=== PATIENT | male | born 1975 | race Caucasian/White ===

== ENCOUNTER 2017-10-28 16:10 | Emergency (ER) | payer OTHER, SELFPAY ==
[2017-10-28 17:06] LABS: #Eosinphils 0.1 thou/uL (0.0-0.7); #Lymphocytes 0.9 thou/uL (1.20-3.40); #Monocytes 0.6 thou/uL (0.11-0.59); #Neutrophils 6.5 thou/uL (1.40-6.50); %Monocytes 7.9 % (0.0-10.0); Hematocrit 49.7 % (42.0-52.0); Mean Platelet Volume 7.1 fL (7.4-10.4); Red Blood Cell (RBC) Count 5.27 mill/uL (4.70-6.10); White Blood Cell (WBC) Count 8.1 thou/uL (4.8-10.8)
[2017-10-28] MEDS ORDERED: Morphine 4 MG/ML VIAL ONE (17:13)
[2017-10-28 17:29] LABS: ALT (SGPT) 26 U/L (8-55); AST (SGOT) 22 U/L (5-34); Alkaline Phosphatase 108 U/L (40-150); Anion Gap 13 mmol/L (10-20); BUN (Urea Nitrogen) 8 mg/dL (8.9-20.6); Bilirubin, Total 0.4 mg/dL (0.2-1.2); Calc. Creatinine Clearance 0 mL/min (70-130); Calcium 9.3 mg/dL (7.8-10.44); Carbon Dioxide 28 mmol/L (22-29); Chloride 101 mmol/L (98-107); Estimated GFR-MDRD 73; Globulin 3.1 g/dL (2.4-3.5); Lipase 18 U/L (8-78); Protein, Total 7.3 g/dL (6.0-8.3)
[2017-10-28] MEDS ORDERED: ISOVUE-370 76%-LOCM 1 ML ONE (17:48)
--- NOTE | 2017-10-28 18:27 | CT ---
CT ABDOMEN WITH CONTRAST CT PELVIS WITH CONTRAST: DATE: 10-28-17 HISTORY: 42-year-old male with right lower quadrant abdominal pain. COMPARISON: None. TECHNIQUE: IV injection of iodinated contrast media: 100 ml of Isovue 379 Oral contrast media: Not administered FINDINGS: The appendix, abdominal aorta, bilateral kidneys, adrenals, pancreas, liver and spleen, are normal. N o sign of acute colonic diverticulitis. No small bowel dilation. No pneumoperitoneum or ascites. Ther e is a tiny left pleural effusion or pleural thickening. There are extensive linear, platelike densit ies throughout the left mid and lower lung zones, similar to previous one view chest radiograph of , representing scar, associated with architectural distortion. Urinary bladder is decompressed a nd difficult to evaluate. IMPRESSION: 1. Normal appendix. 2. No acute intraabdominal or intrapelvic findings identified. 3. Tiny left pleural effusion versus left pleural thickening. 4. 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 JOSELIN Yadav POS: [facility]
== END 2017-10-28 21:22 | disposition home or self-care (01) ==
LOC: ERS 16:10
DX: R10.31 Right lower quadrant pain (principal); B34.9 Viral infection, unspecified; F17.210 Nicotine dependence, cigarettes, uncomplicated; Z79.899 Other long term (current) drug therapy
CPT/HCPCS: 74177; 80053; 83690; 85025; 96361; 96374; 99406; J2270

== ENCOUNTER 2017-10-29 21:36 | Emergency (ER) | payer OTHER, SELFPAY ==
[2017-10-29 22:37] LABS: #Basophils 0.1 thou/uL (0.0-0.2); #Lymphocytes 1.2 thou/uL (1.20-3.40); #Monocytes 0.7 thou/uL (0.11-0.59); #Neutrophils 4.5 thou/uL (1.40-6.50); %Eosinophils 0.5 % (0.0-10.0); %Lymphocytes 17.8 % (21.0-51.0); Mean Platelet Volume 7.4 fL (7.4-10.4); Red Blood Cell (RBC) Count 5.47 mill/uL (4.70-6.10); White Blood Cell (WBC) Count 6.6 thou/uL (4.8-10.8)
[2017-10-29 22:54] LABS: Bilirubin Negative (Negative); Blood, Urine Trace (Negative); Glucose, Urine (Dipstick) Negative (Negative); Ketone, Urine Negative (Negative); Nitrite Negative (Negative); Protein, Urine (Dipstick) Negative (Neg-Trace); Urobilinogen 0.2 mg/dL (0.2-1.0)
[2017-10-29 23:00] LABS: ALT (SGPT) 28 U/L (8-55); AST (SGOT) 33 U/L (5-34); Alkaline Phosphatase 87 U/L (40-150); Anion Gap 16 mmol/L (10-20); BUN (Urea Nitrogen) 9 mg/dL (8.9-20.6); Bilirubin, Total 0.2 mg/dL (0.2-1.2); Calc. Creatinine Clearance 0 mL/min (70-130); Calcium 8.4 mg/dL (7.8-10.44); Carbon Dioxide 21 mmol/L (22-29); Chloride 105 mmol/L (98-107); Estimated GFR-MDRD 80; Globulin 3.2 g/dL (2.4-3.5); Lipase 41 U/L (8-78); Protein, Total 6.8 g/dL (6.0-8.3)
[2017-10-29 23:13] LABS: Bacteria/HPF None Seen HPF (None Seen); Hyaline Casts/LPF 0-3 HYALINE CAST LPF (0-3 Hyaline); RBC/HPF 0-3 HPF (0-3); Squamous Epithelial 0-3 HPF (0-3); WBC/HPF 0-3 HPF (0-3)
--- NOTE | 2017-10-29 23:57 | CT ---
CT OF THE ABDOMEN AND PELVIS WITHOUT CONTRAST: Date: 10-29-17 Provided Clinical History: Right lower quadrant pain. FINDINGS: Comparison is made with a CT examination performed 10-28-17. There is pleural parenchymal scarring at the left lung base again seen. The visualized lung bases appear otherwise clear. The solid abdominal organs are suboptimally evaluated without IV contrast and demonstrate unremarkabl e unenhanced CT appearance. There is no evidence for urinary tract calculi or hydronephrosis. There is no bowel dilatation, inflammatory fat stranding, free fluid or free air apparent. Appendix a ppears normal. The osseous structures demonstrate no concerning osteoblastic or osteolytic lesions. IMPRESSION: No evidence for an acute process. POS: [facility]
[2017-10-30] MEDS ORDERED: Ketorolac Tromethamine 30 MG/ML VIAL ONE (00:10)
== END 2017-10-30 00:17 | disposition home or self-care (01) ==
LOC: SCSER 21:36
DX: R10.31 Right lower quadrant pain (principal); F17.210 Nicotine dependence, cigarettes, uncomplicated; I49.9 Cardiac arrhythmia, unspecified
CPT/HCPCS: 74176; 80053; 81003; 81015; 83690; 85025; 96361; 96374; 99406; J1885

== ENCOUNTER 2018-04-01 22:56 | Emergency (ER) | payer OTHER ==
[2018-04-01 23:20] LABS: #Basophils 0.1 thou/uL (0.0-0.2); #Eosinphils 0.4 thou/uL (0.0-0.7); #Lymphocytes 3.3 thou/uL (1.20-3.40); #Monocytes 0.7 thou/uL (0.11-0.59); #Neutrophils 6.8 thou/uL (1.40-6.50); %Basophils 0.7 % (0.0-1.0); %Eosinophils 3.4 % (0.0-10.0); %Lymphocytes 29.3 % (21.0-51.0); %Monocytes 6.2 % (0.0-10.0); %Neutrophils 60.3 % (42.0-75.0); Hemoglobin 16.6 g/dL (14.0-18.0); Mean Corpuscular HGB CONC 34.3 g/dL (32.0-36.0); Mean Corpuscular Hemoglobin 31.6 pg (27.0-31.0); Mean Platelet Volume 6.9 fL (7.4-10.4); Platelet Count 282 thou/uL (130-400); RBC Distribution Width 12.8 % (11.5-14.5); Red Blood Cell (RBC) Count 5.26 mill/uL (4.70-6.10); White Blood Cell (WBC) Count 11.2 thou/uL (4.8-10.8)
[2018-04-01 23:28] LABS: Prothrombin Time 13.3 SEC (12.0-14.7)
--- NOTE | 2018-04-01 23:29 | RAD ---
PORTABLE CHEST: Date: 04/01/18 PROVIDED CLINICAL HISTORY: Chest pain. FINDINGS: Comparison with 02/24/17. Interstitial opacity involving the left mid and lower lung zones appear similar to the prior examinat ion. Lungs appear otherwise clear. There is no pleural fluid or pneumothorax apparent. IMPRESSION: Stable radiographic appearance of the chest. POS: [facility]
[2018-04-01 23:43] LABS: ALT (SGPT) 14 U/L (8-55); AST (SGOT) 16 U/L (5-34); Albumin 4.1 g/dL (3.5-5.0); Alkaline Phosphatase 102 U/L (40-150); Anion Gap 11 mmol/L (10-20); BUN (Urea Nitrogen) 14 mg/dL (8.9-20.6); Bilirubin, Total 0.3 mg/dL (0.2-1.2); CK (CPK) 152 U/L (30-200); Calc. Creatinine Clearance 0 mL/min (70-130); Calcium 9.4 mg/dL (7.8-10.44); Carbon Dioxide 29 mmol/L (22-29); Chloride 101 mmol/L (98-107); Estimated GFR-MDRD 65; Globulin 2.8 g/dL (2.4-3.5); Glucose 97 mg/dL (70-105); Protein, Total 6.9 g/dL (6.0-8.3); Sodium 137 mmol/L (136-145)
[2018-04-01 23:48] LABS: CKMB 1.3 ng/mL (0-6.6); Troponin I Less than 0.010 ng/mL (< 0.028)
[2018-04-02] MEDS ORDERED: Enoxaparin Sodium 80 MG/0.8 ML SYRINGE ONE (01:46)
[2018-04-02] MEDS ORDERED: cloNIDine 0.1 MG TAB ONE (01:47)
== END 2018-04-02 01:34 | disposition left against medical advice (07) ==
LOC: ERS 22:56
DX: Z53.21 Procedure and treatment not carried out due to patient leaving prior to being seen by health care provider (principal)
CPT/HCPCS: 36415; 71045; 80053; 82553; 83880; 84484; 85025; 85610; 85730; 93005; J1650

== ENCOUNTER 2018-04-02 01:48 | Emergency (ER) | payer BC, OTHER ==
[2018-04-02 02:37] LABS: Troponin I Less than 0.010 ng/mL (< 0.028)
== END 2018-04-02 03:19 | disposition home or self-care (01) ==
LOC: SCSER 01:48
DX: F43.9 Reaction to severe stress, unspecified (principal); R07.9 Chest pain, unspecified; F17.210 Nicotine dependence, cigarettes, uncomplicated
CPT/HCPCS: 84484; 93005

== ENCOUNTER 2019-01-20 22:28 | Emergency (ER) | payer OTHER ==
[2019-01-20 23:37] LABS: #Basophils 0.1 thou/uL (0.0-0.2); #Eosinphils 0.3 thou/uL (0.0-0.7); #Lymphocytes 2.8 thou/uL (1.20-3.40); #Monocytes 0.6 thou/uL (0.11-0.59); #Neutrophils 7.1 thou/uL (1.40-6.50); %Eosinophils 3.1 % (0.0-10.0); %Lymphocytes 25.1 % (21.0-51.0); %Monocytes 5.7 % (0.0-10.0); %Neutrophils 65.1 % (42.0-75.0); Hemoglobin 17.1 g/dL (14.0-18.0); Mean Corpuscular HGB CONC 33.7 g/dL (32.0-36.0); Mean Corpuscular Hemoglobin 30.9 pg (27.0-31.0); Mean Corpuscular Volume 91.6 fL (78.0-98.0); Mean Platelet Volume 7.2 fL (7.4-10.4); Platelet Count 285 thou/uL (130-400); RBC Distribution Width 12.3 % (11.5-14.5); Red Blood Cell (RBC) Count 5.54 mill/uL (4.70-6.10)
[2019-01-21 00:03] LABS: CKMB 1.8 ng/mL (0-6.6)
[2019-01-21 03:17] LABS: Troponin I Less than 0.010 ng/mL (< 0.028)
[2019-01-21] MEDS ORDERED: Ketorolac Tromethamine 30 MG/ML VIAL ONE ×2 (04:51→05:10)
[2019-01-21] MEDS ORDERED: Aspirin Chewable 81 MG TAB ONE (05:10)
--- NOTE | 2019-01-21 08:01 | CT ---
CTA OF THE THORAX UTILIZING IV CONTRAST PE PROTOCOL WITH 3D REFORMATTED IMAGING: Date: 01/21/19 INDICATION: Chest pain. COMPARISON: Chest radiograph dated 09/02/05, 02/24/17, and a CT of the abdomen and pelvis dated 10/29/17. FINDINGS: No central or segmental pulmonary embolus is evident. There is pleural parenchymal scarring involving the left hemithorax, which has been stable since 2004 . There are areas of ground-glass opacity seen within the aerated lung bilaterally, which has the appea ayan of a mosaic perfusion pattern. This can be seen with peripheral small airways and small vessel disease. No pathologically enlarged lymph nodes are evident. Visualized upper abdomen reveals no definite acute abnormality. There is a small hiatal hernia. No ac nani osseous abnormality is demonstrated. IMPRESSION: 1. No central or segmental pulmonary embolus. 2. Diffuse mosaic perfusion pattern of both lungs may reflect sequelae of small airways disease or s mall vessels disease. This can be seen with entities such as hypersensitivity pneumonitis, atypical i nfectious process, pulmonary edema, or bronchiolitis. 3. Stable pleural parenchymal scarring of the left hemithorax. 4. Small hiatal hernia. POS: [facility]
--- NOTE | 2019-01-21 08:57 | RAD ---
PORTABLE AP CHEST X-RAY: 01/20/2019 HISTORY: Chest pain. COMPARISON: 04/01/2018 and 02/24/2017 FINDINGS: Increased interstitial densities in the left mid lung zone, at the left lung base, are again seen, wi th blunting of the left lateral costophrenic angle, similar to the prior study. Findings are likely related to pleural and parenchymal scarring. The right lung remains clear. The cardiac silhouette a nd pulmonary vasculature are within normal limits. There has been no interval change, compared to th e prior studies. IMPRESSION: 1. No acute cardiopulmonary process. 2. Chronic changes, left mid lung zone and left lung base. POS: [facility]
[2019-01-21] MEDS ORDERED: ISOVUE-370 76%-LOCM 1 ML ONE (11:23)
--- NOTE | 2019-01-25 09:27 | EKG ---
Test Reason : Blood Pressure : / mmHG Vent. Rate : 097 BPM Atrial Rate : 097 BPM P-R Int : 142 ms QRS Dur : 110 ms QT Int : 352 ms P-R-T Axes : 069 007 034 degrees QTc Int : 447 ms Normal sinus rhythm Incomplete right bundle branch block Septal infarct , age undetermined Abnormal ECG Confirmed by AIXA GIBSON ([id number]), web content editor KATHERYN GARLAND ([id number]) on 01/25/2019 9:26:34 AM Referred By: Confirmed By:AIXA GIBSON
== END 2019-01-21 05:36 | disposition home or self-care (01) ==
LOC: ERS 22:28
DX: J18.9 Pneumonia, unspecified organism (principal); I47.1 Supraventricular tachycardia; F90.9 Attention-deficit hyperactivity disorder, unspecified type; F17.210 Nicotine dependence, cigarettes, uncomplicated; I49.9 Cardiac arrhythmia, unspecified
CPT/HCPCS: 36415; 71045; 71275; 82553; 83690; 83880; 84484; 85025; 85379; 93005; 96374; J1885; Q9966

== ENCOUNTER 2022-08-22 08:27 | Outpatient (CLI) | payer BC ==
[2022-08-22] MEDS ORDERED: Iopamidol 370 76% 100 ML VIAL ONE (13:48)
== END 2022-08-22 08:28 | disposition home or self-care (01) ==
LOC: CT 08:27
PROVIDERS: ATTEND Internal Medicine
DX: R53.83 Other fatigue (principal); J98.4 Other disorders of lung
CPT/HCPCS: 71260; Q9967

== ENCOUNTER 2023-01-05 15:36 | Emergency (ER) | payer BC | END 2023-01-05 18:35 | disposition home or self-care (01) | LOC: ERS 15:36 | DX: M20.011 Mallet finger of right finger(s) (principal); F17.210 Nicotine dependence, cigarettes, uncomplicated ==

== ENCOUNTER 2023-02-05 07:38 | Outpatient (CLI) | payer OTHER | END 2023-02-05 07:39 | disposition home or self-care (01) | LOC: SCSMRI 07:38 | PROVIDERS: ATTEND Orthopaedic Surgery Hand Surgery | DX: S66.304A Unspecified injury of extensor muscle, fascia and tendon of right ring finger at wrist and hand level, initial encounter (principal); R60.0 Localized edema ==